=== PATIENT | male | born 1940 | race Caucasian/White ===

== ENCOUNTER 2017-10-24 11:09 | Inpatient (IN) | payer MEDICARE, BC ==
[2017-10-24] MEDS ORDERED: SODIUM CHLORIDE 0.9% 1,000 ML IV STA (11:27)
[2017-10-24 11:44] LABS: Basophils % (A) 1 %; Eosinophils # (A) 0.2 k/uL (0-0.7); Eosinophils % (A) 3 %; HCT 46.2 % (39.0-53.0); HGB 15.4 gm/dL (13.0-17.5); Lymphocytes # (A) 1.8 k/uL (1.0-4.8); Lymphocytes % (A) 27 %; MCH 27.4 pg (25.0-35.0); MCHC 33.4 g/dL (31.0-37.0); MCV 82.2 fL (80.0-100.0); Mean Platelet Volume 8.7; Monocytes # (A) 0.6 k/uL (0-1.0); Monocytes % (A) 9 %; Neutrophils # (A) 3.8 k/uL (1.3-7.7); Neutrophils % (A) 58 %; Platelet Count 151 k/uL (150-450); RBC 5.62 m/uL (4.30-5.90); RDW 13.3 % (11.5-15.5); WBC 6.4 k/uL (3.8-10.6)
--- NOTE | 2017-10-24 11:52 | ED ---
General Adult HPI - General Chief complaint: Chest Pain Stated complaint: Chest Pain Source: patient Mode of arrival: ambulatory Limitations: no limitations - History of Present Illness Initial comments: Dictation was produced using [email or web address] dictation software. please excuse any grammatical, word or spelling errors. Chief Complaint: 77-year-old male with past medical history diabetes, hypertension and chronic joint pain presents with chest pain and paresthesias to the face and left shoulder. History of Present Illness: Patient is a 77-year-old male with past medical history of diabetes and hypertension presents with chest pain with paresthesias to the face and left shoulder. Patient states at approximately 8 AM he began having chest pain. Soon after he began noticing paresthesias to the left lower face and left shoulder. Patient denies ever having had symptoms like this before. He localizes the chest pain to substernal with extension to the left chest. He does state that it rates to the back mildly. The ROS documented in this emergency department record has been reviewed and confirmed by me. Those systems with pertinent positive or negative responses have been documented in the HPI. All other systems are other negative and/or noncontributory. - Related Data Home Medications Medication Instructions Recorded Confirmed Alpha Lipoic Acid 600 mg PO DAILY 10/24/17 10/24/17 Bethanechol Chloride [Urecholine] 25 mg PO QID 10/24/17 10/24/17 Cholecalciferol [Vitamin D3] 2,000 unit PO DAILY 10/24/17 10/24/17 Diltiazem HCl [Diltiazem ER] 240 mg PO DAILY 10/24/17 10/24/17 Hydrochlorothiazide 12.5 mg PO DAILY 10/24/17 10/24/17 Metoprolol Tartrate [Lopressor] 25 mg PO BID-W/MEALS 10/24/17 10/24/17 [place]-3 Acid Ethyl Esters [Lovaza] 4 gm PO DAILY 10/24/17 10/24/17 Omeprazole [PriLOSEC] 40 mg PO BID 10/24/17 10/24/17 Telmisartan [Micardis] 40 mg PO DAILY 10/24/17 10/24/17 Testosterone Cypionate 140 mg IM WEEKLY 10/24/17 10/24/17 [Depo-Testosterone] rOPINIRole HCL [Requip] 4 mg PO BID@1700,2100 10/24/17 10/24/17 Allergies Allergy/AdvReac Type Severity Reaction Status Date / Time No Known Allergies Allergy Verified 10/24/17 11:24 Review of Systems ROS Statement: Those systems with pertinent positive or pertinent negative responses have been documented in the HPI. ROS Other: All systems not noted in ROS Statement are negative. Past Medical History Past Medical History: Diabetes Mellitus, Hypertension History of Any Multi-Drug Resistant Organisms: None Reported Past Surgical History: Back Surgery, Orthopedic Surgery Additional Past Surgical History / Comment(s): neck surg, shoulder, carpal tunnel, knee, colon polyp Past Psychological History: No Psychological Hx Reported Smoking Status: Never smoker Past Alcohol Use History: Occasional Past Drug Use History: None Reported General Exam - General Exam Comments Initial Comments: PHYSICAL EXAM: General Impression: Alert and oriented x3, acute distress secondary to pain HEENT: Normocephalic atraumatic, extra-ocular movements intact, pupils equal and reactive to light bilaterally, mucous membranes moist. Cardiovascular: Heart regular rate and rhythm, S1&S2 audible, no murmurs, rubs or gallops Chest: Lungs clear to auscultation bilaterally, no rhonchi, no wheeze, no rales Abdomen: Bowel sounds present, abdomen soft, non-tender, non-distended, no organomegaly Musculoskeletal: Pulses present and equal in all extremities, no peripheral edema Motor: Power 5/5 bilaterally, no focal deficits noted Neurological: CN II-XII grossly intact, sensory deficit to light touch of the left lower face and left shoulder extending from the left shoulder down to the elbow region Skin: Intact with no visualized rashes Psych: Normal affect and mood Limitations: no limitations Course Vital Signs 10/24/17 10/24/17 11:19 11:30 Temperature 98 F Pulse Rate 58 L Pulse Rate [ 53 L [employer] ] Respiratory 18 Rate Blood Pressure 177/89 O2 Sat by Pulse 97 Oximetry Medical Decision Making - Medical Decision Making ED course: 77-year-old male presents with chest pain with paresthesias to the left face and left shoulder. Vital signs upon arrival are within acceptable limits. There is concern that patient's symptoms represent dissection. Patient 's initial NIH was 3. Code stroke was withheld at this time because patient is not a cLaboratory evaluation obtained. CBC unremarkable. Coag panel is unremarkable. Chest x-ray shows no acute cardiopulmonary process. There was a delay in CT of the chest and head and neck. While this was being performed and read by radiologist patient fell out of the TPA window. Regardless patient was not a candidate for TPA given low NIH scale. Several hours later patient's CT results were resulted and found to be negative for any dissection or other arterial abnormalities. Patient reevaluated with stable medical condition. He does still have some chest pressure and persistent left jaw and left shoulder numbness. EKG did not show any signs to suggest ischemia, infarction or arrhythmias. At this point there is more suspicion that patient's symptoms are more insurance verification representative of CVA versus acute cardiac process. Patient given aspirin. He is admitted to [facility].andidate for TPA. There is strong clinical suspicion that patient's symptoms represent aortic dissection with extension to the left EKG Interpretation: A 12 lead EKG was obtained. It was interpreted by myself and attending physician. There is a P wave before every QRS complex. Rate is 57. Rhythm is sinus bradycardia, MI interval 166, QS 90, QTC 393. QT is not prolonged. No ST segment depression or elevation. This EKG was compared to a previous EKG that was obtained on 11/12/2007 and showed no significant change. Overall, this EKG is unremarkable - Lab Data Result diagrams: 10/24/17 11:20 10/24/17 11:20 Lab Results 10/24/17 10/24/17 10/24/17 Range/Units 11:20 11:20 11:20 WBC 6.4 (3.8-10.6) k/uL RBC 5.62 (4.30-5.90) m/uL Hgb 15.4 (13.0-17.5) gm/dL Hct 46.2 (39.0-53.0) % MCV 82.2 (80.0-100.0) fL MCH 27.4 (25.0-35.0) pg MCHC 33.4 (31.0-37.0) g/dL RDW 13.3 (11.5-15.5) % Plt Count 151 (150-450) k/uL Neutrophils % 58 % Lymphocytes % 27 % Monocytes % 9 % Eosinophils % 3 % Basophils % 1 % Neutrophils # 3.8 (1.3-7.7) k/uL Lymphocytes # 1.8 (1.0-4.8) k/uL Monocytes # 0.6 (0-1.0) k/uL Eosinophils # 0.2 (0-0.7) k/uL Basophils # 0.0 (0-0.2) k/uL PT (9.0-12.0) sec INR (<1.2) APTT (22.0-30.0) sec Sodium 138 (137-145) mmol/L Potassium 4.5 (3.5-5.1) mmol/L Chloride 104 (98-107) mmol/L Carbon Dioxide 21 L (22-30) mmol/L Anion Gap 13 mmol/L BUN 13 (9-20) mg/dL Creatinine 0.70 (0.66-1.25) mg/dL Est GFR (CKD-EPI)AfAm >90 (>60 ml/min/1.73 sqM) Est GFR (CKD-EPI)NonAf >90 (>60 ml/min/1.73 sqM) Glucose 112 H (74-99) mg/dL Calcium 9.7 (8.4-10.2) mg/dL Magnesium 1.5 L (1.6-2.3) mg/dL Total Bilirubin 0.6 (0.2-1.3) mg/dL AST 27 (17-59) U/L ALT 27 (21-72) U/L Alkaline Phosphatase 64 (38-126) U/L Total Creatine Kinase 177 H (55-170) U/L CK-MB (CK-2) 4.4 H* (0.0-2.4) ng/mL CK-MB (CK-2) Rel Index 2.5 Troponin I <0.012 (0.000-0.034) ng/mL Total Protein 7.0 (6.3-8.2) g/dL Albumin 4.4 (3.5-5.0) g/dL 10/24/17 Range/Units 11:20 WBC (3.8-10.6) k/uL RBC (4.30-5.90) m/uL Hgb (13.0-17.5) gm/dL Hct (39.0-53.0) % MCV (80.0-100.0) fL MCH (25.0-35.0) pg MCHC (31.0-37.0) g/dL RDW (11.5-15.5) % Plt Count (150-450) k/uL Neutrophils % % Lymphocytes % % Monocytes % % Eosinophils % % Basophils % % Neutrophils # (1.3-7.7) k/uL Lymphocytes # (1.0-4.8) k/uL Monocytes # (0-1.0) k/uL Eosinophils # (0-0.7) k/uL Basophils # (0-0.2) k/uL PT 10.0 (9.0-12.0) sec INR 1.0 (<1.2) APTT 21.3 L (22.0-30.0) sec Sodium (137-145) mmol/L Potassium (3.5-5.1) mmol/L Chloride (98-107) mmol/L Carbon Dioxide (22-30) mmol/L Anion Gap mmol/L BUN (9-20) mg/dL Creatinine (0.66-1.25) mg/dL Est GFR (CKD-EPI)AfAm (>60 ml/min/1.73 sqM) Est GFR (CKD-EPI)NonAf (>60 ml/min/1.73 sqM) Glucose (74-99) mg/dL Calcium (8.4-10.2) mg/dL Magnesium (1.6-2.3) mg/dL Total Bilirubin (0.2-1.3) mg/dL AST (17-59) U/L ALT (21-72) U/L Alkaline Phosphatase (38-126) U/L Total Creatine Kinase (55-170) U/L CK-MB (CK-2) (0.0-2.4) ng/mL CK-MB (CK-2) Rel Index Troponin I (0.000-0.034) ng/mL Total Protein (6.3-8.2) g/dL Albumin (3.5-5.0) g/dL Disposition Clinical Impression: Chest pain, Neurological deficit present Disposition: ADMITTED IP TO THIS [facility] Referrals: Nonstaff,Physician [Primary Care Provider] - 1-2 days Decision Time: 15:08
[2017-10-24 12:00] LABS: Partial Thromboplastin Time 21.3 sec (22.0-30.0)
[2017-10-24 12:04] LABS: Creatine Kinase 177 U/L (55-170)
[2017-10-24 12:06] LABS: ALT 27 U/L (21-72); AST 27 U/L (17-59); Albumin 4.4 g/dL (3.5-5.0); Alkaline Phosphatase 64 U/L (38-126); Anion Gap 13 mmol/L; Blood Urea Nitrogen 13 mg/dL (9-20); Calcium 9.7 mg/dL (8.4-10.2); Carbon Dioxide 21 mmol/L (22-30); Chloride 104 mmol/L (98-107); Glucose 112 mg/dL (74-99); Magnesium 1.5 mg/dL (1.6-2.3); Potassium 4.5 mmol/L (3.5-5.1); Sodium 138 mmol/L (137-145); Total Bilirubin 0.6 mg/dL (0.2-1.3)
[2017-10-24 12:16] LABS: Troponin I <0.012 ng/mL (0.000-0.034)
[2017-10-24 12:17] LABS: Creatine Kinase MB 4.4 ng/mL (0.0-2.4)
--- NOTE | 2017-10-24 14:11 | XR ---
EXAMINATION TYPE: XR chest 2V DATE OF EXAM: 10/24/2017 CLINICAL HISTORY: Chest Pain TECHNIQUE: Frontal and lateral views of the chest are obtained. COMPARISON: None FINDINGS: There is no focal air space opacity, pleural effusion, or pneumothorax seen. The cardiac silhouette size is within normal limits. The osseous structures are intact. IMPRESSION: No acute cardiopulmonary process.
--- NOTE | 2017-10-24 14:58 | CT ---
EXAMINATION TYPE: CT angio thor/abd pel aorta, CT angio head neck DATE OF EXAM: 10/24/2017 COMPARISON: None HISTORY: Shortness of breath, chest pain radiating to left side of face and shoulder. Dizziness. CT DLP: 1679 mGycm CONTRAST: CTA thoracic and abdominal aorta with 3-D reconstruction is performed and without and with IV Contras t (accession [id number]), with IV Contrast (accession [id number]), patient injected with 100 mL of Isovue 370. Contrast CTA of the thoracic and abdominal aorta was performed from the lung apex through the base of the pelvis. 3-D reconstruction imaging obtained at a separate workstation. CT Chest: THORACIC AORTA: There is no evidence for aneurysm. No dissection or mediastinal hematoma. Mild ath eromatous changes are seen. LUNGS: The lungs are clear and free of infiltrate or atelectasis. No pulmonary nodule or mass is det ected. No pleural effusion or CT evidence of interstitial lung disease. MEDIASTINUM: The heart is not enlarged. No evidence for mediastinal mass or adenopathy. HILAR STRUCTURES: No evidence for mass. No hilar adenopathy is appreciated. OTHER: No significant abnormality. CONTRAST CT ABDOMEN AND PELVIS ABDOMENAL AORTA: No evidence for abdominal aortic aneurysm. No dissection. Iliac vessels are symmet won and patent. LIVER/GB- No significant abnormality is seen. PANCREAS- No significant abnormality is seen. SPLEEN- No significant abnormality is seen. ADRENALS- No significant abnormality is seen. KIDNEYS/BLADDER-3 mm nonobstructing calculus lower pole right kidney. BOWEL- No Significant abnormality GENITAL ORGANS: No gross abnormality seen. LYMPH NODES- No greater than 1cm abdominal or pelvic lymph nodes are appreciated. OSSEOUS STRUCTURES-severe degenerative change lumbar spine and postoperative change. OTHER- No significant abnormality is seen. IMPRESSION- 1. No evidence for aortic dissection or aneurysm. EXAMINATION TYPE: CT angio thor/abd pel aorta, CT angio head neck DATE OF EXAM: 10/24/2017 COMPARISON: HISTORY: Shortness of breath, chest pain radiating to left side of face and shoulder. Dizziness. CT DLP: 1679 mGycm CONTRAST: Performed without and with IV Contrast (accession [id number]), with IV Contrast (accession [id number]), p atient injected with 100 mL of Isovue 370. Combination Contrast CTA cervical carotids and [place] CTA cervical carotids with 3-D recons truction Contrast CTA of the cervical carotids was performed 3-D reconstruction imaging obtained at a separate workstation. Right carotid system: Mild plaque is seen of the right common carotid artery. There is mild plaque a lso noted at the carotid bulb and proximal ICA. No significant diameter reduction. ECA is patent. Right vertebral artery appears unremarkable. Left carotid system: Mild plaque is seen of the left common carotid artery. There is mild plaque als o noted at the carotid bulb and proximal ICA. No significant diameter reduction. ECA is patent. Lef t vertebral artery appears unremarkable. IMPRESSION: 1. No significant diameter reduction to account for the patient's symptoms. No evidence for dissectio n. CTA [place] with 3-D reconstruction Contrast CTA of the [place] was performed 3-D reconstruction imaging obtained at a separate workstation. Vertebrobasilar system as well as intracranial portions of the internal carotid arteries and their [place] tributaries are patent. I do not see evidence for sizable aneurysm or vascular malformation. Pl ease note MRI provides greater sensitivity and specificity. Visualized brain appears grossly unremar kable. IMPRESSION: 1. No evidence for aneurysm or vascular occlusion.
[2017-10-24] MEDS ORDERED: ASPIRIN 81 MG PO STA (15:02)
[2017-10-24] MEDS ORDERED: NALOXONE 0.4 MG/ML 1 ML VIAL IV PRN (15:08)
[2017-10-24] MEDS: NITROGLYCERIN SL TABS 0.4 MG TAB SUBLINGUAL PRN ×3 (15:41→16:28)
[2017-10-24] MEDS ORDERED: ACETAMINOPHEN TAB 325 MG TAB PO PRN (15:42)
--- NOTE | 2017-10-24 15:57 | P.HPIM ---
History of Present Illness H&P Date: 10/24/17 Chief Complaint: Chest pain, facial numbness and tingling The patient is a 77-year-old male the past medical history of essential hypertension dyslipidemia, previous TIA, peripheral neuropathy who presents to the ER via private vehicle with chief complaints of chest pain. Apparently this morning the patient woke up feeling some mild to moderate left- sided chest pressure which she attributed to indigestion, the patient later preceded to do some yard work shoveling soil and after that began having worsening severe left-sided chest pressure with associated shortness of breath, lightheadedness, right-sided facial numbness and tingling, and radiation into his left shoulder and upper extremity. The patient denied any nausea diaphoresis or lower extremity swelling, the patient is a former cigarette smoker but does occasionally smoke a cigar several times a week. The patient reports previously having a treadmill stress test years ago that he was unable to complete secondary to severe joint pain. In the ER the patient received a comprehensive workup, EKG showed sinus bradycardia, initial set of troponins were negative, CK-MB elevated at 4.4. The patient was given aspirin in the ER and is still complain of chest pain. CTA of the of the chest and neck, were all negative. The patient is recommended for admission for chest pain and TIA workup. Her symptoms began approximately 9 AM, P per ER physician NIH score was approximately 3 and the patient had presented outside the window for TPA Review of Systems Pertinent positives and negatives as discussed in HPI, complete review of systems was performed and all other systems are negative Past Medical History Past Medical History: Diabetes Mellitus, Hypertension History of Any Multi-Drug Resistant Organisms: None Reported Past Surgical History: Back Surgery, Orthopedic Surgery Additional Past Surgical History / Comment(s): neck surg, shoulder, carpal tunnel, knee, colon polyp Past Psychological History: No Psychological Hx Reported Smoking Status: Never smoker Past Alcohol Use History: Occasional Past Drug Use History: None Reported Medications and Allergies Home Medications Medication Instructions Recorded Confirmed Type Alpha Lipoic Acid 600 mg PO DAILY 10/24/17 10/24/17 History Bethanechol Chloride [Urecholine] 25 mg PO QID 10/24/17 10/24/17 History Cholecalciferol [Vitamin D3] 2,000 unit PO DAILY 10/24/17 10/24/17 History Diltiazem HCl [Diltiazem ER] 240 mg PO DAILY 10/24/17 10/24/17 History Hydrochlorothiazide 12.5 mg PO DAILY 10/24/17 10/24/17 History Metoprolol Tartrate [Lopressor] 25 mg PO BID-W/MEALS 10/24/17 10/24/17 History [place]-3 Acid Ethyl Esters [Lovaza] 4 gm PO DAILY 10/24/17 10/24/17 History Omeprazole [PriLOSEC] 40 mg PO BID 10/24/17 10/24/17 History Telmisartan [Micardis] 40 mg PO DAILY 10/24/17 10/24/17 History Testosterone Cypionate 140 mg IM WEEKLY 10/24/17 10/24/17 History [Depo-Testosterone] rOPINIRole HCL [Requip] 4 mg PO BID@1700,2100 10/24/17 10/24/17 History Allergies Allergy/AdvReac Type Severity Reaction Status Date / Time No Known Allergies Allergy Verified 10/24/17 11:24 Physical Exam Vitals: Vital Signs Temp Pulse Pulse Resp BP Pulse Ox 10/24/17 15:42 140/81 10/24/17 15:28 64 16 144/85 96 10/24/17 11:30 53 L 10/24/17 11:19 98 F 58 L 18 177/89 97 Intake and Output 10/24/17 10/24/17 10/24/17 06:59 14:59 22:59 Other: Weight 85.729 kg Constitutional: No acute distress, conversant, pleasant Eyes: Anicteric sclerae, moist conjunctiva, no lid-lag, PERRLA ENMT: NC/AT,Oropharynx clear, no erythema, exudates Neck:Supple, FROM, no masses, or JVD, No carotid bruits; No thyromegaly Lungs: Clear to auscultation, Clear to percussion, Normal respiratory effort, no accessory muscle use Cardiovascular: Heart regular in rate and rhythm, No murmurs, gallops, or rubs no peripheral edema Abdominal: Soft Nontender, nom distended, no guarding, no rebound or rigidity, Normoactive bowel sounds No hepatomegaly, No splenomegaly, No palpable mass No abdominal wall hernia noted Skin: Normal temperature, tone, texture, turgor, No induration No subcutaneous nodules, No rash, lesions, No ulcers Extremities:No digital cyanosis No clubbing, Pedal pulses intact and symmetrical Radial pulses intact and symmetrical Normal gait and station, No calf tenderness Psychiatric: Alert and oriented to person, place and time, Appropriate affect Intact judgement Neuro: Muscles Strength 5/5 in all 4 extremities, Sensation to light touch grossly present throughout, Cranial nerves II-XII grossly intact. No focal sensory deficits Results CBC & Chem 7: 10/24/17 11:20 10/24/17 11:20 Labs: Abnormal Lab Results - Last 24 Hours (Table) 10/24/17 10/24/17 10/24/17 Range/Units 11:20 11:20 11:20 APTT 21.3 L (22.0-30.0) sec Carbon Dioxide 21 L (22-30) mmol/L Glucose 112 H (74-99) mg/dL Magnesium 1.5 L (1.6-2.3) mg/dL Total Creatine Kinase 177 H (55-170) U/L CK-MB (CK-2) 4.4 H* (0.0-2.4) ng/mL Assessment and Plan Assessment: Chronic medical issues Restless leg syndrome Peripheral neuropathy (1) Chest pain Current Visit: Yes Status: Acute Code(s): R07.9 - CHEST PAIN, UNSPECIFIED SNOMED Code(s): 37957413 (2) Facial paresthesia Current Visit: Yes Status: Acute Code(s): R20.9 - UNSPECIFIED DISTURBANCES OF SKIN SENSATION SNOMED Code(s): 27982777 (3) Hypertensive urgency Current Visit: Yes Status: Acute Code(s): I16.0 - HYPERTENSIVE URGENCY SNOMED Code(s): 009876382 Plan: The patient is placed in observation anticipated less than 2 midnight stay with chest pain concerning for unstable angina, his initial troponins are negative, EKG is negative for initiation of any acute ischemia. Patient does have ongoing coronary artery disease risk factors we'll plan to trend his cardiac markers, start routine chest pain orders with nitroglycerin sublingual, continue beta samaria metoprolol, initiate statin therapy. Resume all patient' s home and hypertensive regimen. We'll also start anticoagulation with heparin per protocol. We'll order echocardiogram, consult cardiology and neurology and continue to monitor patient's clinical course
[2017-10-24] MEDS: HEPARIN SOD,PORK IN 0.45% NACL 25,000 UNIT in 0.45% NACL 1 500ML.BAG IV SCH (16:20)
[2017-10-24] MEDS ORDERED: MORPHINE SULFATE 2 MG/ML SYRINGE IVP PRN (17:22)
[2017-10-24 17:46] LABS: Creatine Kinase 137 U/L (55-170)
[2017-10-24 17:58] LABS: Troponin I <0.012 ng/mL (0.000-0.034)
[2017-10-24 17:59] LABS: Creatine Kinase MB 3.7 ng/mL (0.0-2.4)
[2017-10-24] MEDS: BETHANECHOL 25 MG TAB PO SCH ×2 (18:46→20:29)
[2017-10-24] MEDS: METOPROLOL TARTRATE 25 MG TAB PO SCH (18:46)
[2017-10-24] MEDS: PANTOPRAZOLE 40 MG TABLET PO SCH (18:46)
[2017-10-24] MEDS: rOPINIRole HCL 4 MG TABLET PO SCH ×2 (18:46→20:29)
[2017-10-24] MEDS: HEPARIN SODIUM,PORCINE 5,000 UNIT/ML 1 ML VIAL IV PRN (21:15)
[2017-10-24 22:52] VITALS: BMI 28.7
[2017-10-24 23:17] LABS: Creatine Kinase 103 U/L (55-170)
[2017-10-24 23:30] LABS: Troponin I <0.012 ng/mL (0.000-0.034)
[2017-10-24 23:32] LABS: Creatine Kinase MB 3.1 ng/mL (0.0-2.4)
[2017-10-25] MEDS: METOPROLOL TARTRATE 25 MG TAB PO SCH ×2 (06:13→17:00)
[2017-10-25] MEDS: PANTOPRAZOLE 40 MG TABLET PO SCH ×2 (06:13→17:01)
[2017-10-25] MEDS ORDERED: MORPHINE ORAL SOLN 10 MG/5 ML CUP PO PRN (06:28)
[2017-10-25] MEDS: HEPARIN SODIUM,PORCINE 5,000 UNIT/ML 1 ML VIAL IV PRN (06:30)
[2017-10-25 06:37] LABS: Cholesterol 264 mg/dL (<200); HDL Cholesterol 43 mg/dL (40-60); LDL Cholesterol,Calculated 154 mg/dL (0-99); Triglycerides 334 mg/dL (<150)
[2017-10-25] MEDS: ATORVASTATIN 80 MG TAB PO SCH (08:07)
[2017-10-25] MEDS: ASPIRIN 325 MG TAB PO SCH (08:07)
[2017-10-25] MEDS: BETHANECHOL 25 MG TAB PO SCH ×4 (08:08→20:03)
[2017-10-25] MEDS: CHOLECALCIFEROL 1,000 UNIT TAB PO SCH (08:08)
[2017-10-25] MEDS: HYDROCHLOROTHIAZIDE 12.5 MG CAP PO SCH (08:09)
[2017-10-25] MEDS: DILTIAZEM CD 240 MG CAP.ER.24H PO SCH (08:09)
[2017-10-25] MEDS: LOSARTAN 50 MG TAB PO SCH (08:09)
--- NOTE | 2017-10-25 08:31 | ECHOF ---
Referral Reason:chest pain /TIA MEASUREMENTS -------- HEIGHT: 172.7 cm WEIGHT: 85.7 kg BP: 144/85 RVIDd: 3.4 cm (< 3.3) IVSd: 1.1 cm (0.6 - 1.1) LVIDd: 4.5 cm (3.9 - 5.3) LVPWd: 1.1 cm (0.6 - 1.1) IVSs: 1.4 cm LVIDs: 3.4 cm LVPWs: 1.4 cm LAESV Index (A-L): 26.51 ml/m Ao Diam: 3.6 cm (2.0 - 3.7) AV Cusp: 1.7 cm (1.5 - 2.6) LA Diam: 3.7 cm (2.7 - 3.8) EPSS: 1.1 cm MV E Marlon: 0.38 m/s MV DecT: 743 ms MV A Marlon: 0.95 m/s MV E/A Ratio: 0.40 RAP: 5.00 mmHg RVSP: 17.85 mmHg MV EF SLOPE: 61.91 mm/s (70 - 150) MV EXCURSION: 1.47 cm (> 18.000) FINDINGS -------- Sinus rhythm. This was a technically good study. The left ventricular size is normal. There is borderline concentric left ventricular hypertrophy. Overall left ventricular systolic function is normal with, an EF between 55 - 60 %. The right ventricle is mildly enlarged. Normal LA size by volume 22+/-6 ml/m2. The right atrium is normal in size. Hyperdynamic interatrial septum. Aortic valve is trileaflet and is mildly thickened. There is no evidence of aortic regurgitation. There is no evidence of aortic stenosis. The mitral valve is normal. Mild mitral regurgitation is present. Mild tricuspid regurgitation present. Right ventricular systolic pressure is normal at < 35 mmHg. The right ventricular systolic pressure, as measured by Doppler, is 17.85mmHg. Trace/mild (physiologic) pulmonic regurgitation. The aortic root is mildy dilated, up to 3.9 cm. Normal inferior vena cava with normal inspiratory collapse consistent with estimated right atrial pre ssure of 5 mmHg. There is no pericardial effusion. CONCLUSIONS -------- 1. Sinus rhythm. 2. This was a technically good study. 3. The left ventricular size is normal. 4. There is borderline concentric left ventricular hypertrophy. 5. Overall left ventricular systolic function is normal with, an EF between 55 - 60 %. 6. The right ventricle is mildly enlarged. 7. Normal LA size by volume 22+/-6 ml/m2. 8. Hyperdynamic interatrial septum. 9. Aortic valve is trileaflet and is mildly thickened. 10. Mild mitral regurgitation is present. 11. Right ventricular systolic pressure is normal at < 35 mmHg. 12. Trace/mild (physiologic) pulmonic regurgitation. 13. The aortic root is mildy dilated, up to 3.9 cm. 14. There is no pericardial effusion. INDEX EDITOR: Guillermo Baldwin RDCS
[2017-10-25] MEDS ORDERED: OMEGA ACID ETHYL ESTERS PO SCH (09:00)
[2017-10-25] MEDS ORDERED: ALPHA LIPOIC ACID 600 MG PO SCH (09:00)
--- NOTE | 2017-10-25 11:01 | P.PN ---
Subjective Progress Note Date: 10/25/17 Patient up and awake alert lady her Combivent relaxed, still complain of mild chest pressure rated at 2 out of 10 also with ongoing right facial paresthesias. No acute events overnight Objective - Vital Signs Vital signs: Vital Signs Temp 96.5 F L 10/25/17 08:00 Pulse 58 L 10/25/17 08:00 Resp 16 10/25/17 08:00 BP 138/73 10/25/17 08:00 Pulse Ox 99 10/25/17 08:00 Intake & Output 10/24/17 10/25/17 10/25/17 18:59 06:59 18:59 Intake Total 457.581 240 Output Total 700 Balance 457.581 -460 Weight 85.72 kg 83.1 kg Intake: IV 125 HEPARIN 25ML 125 Intake, IV Titration 332.581 Amount Heparin Sod,Pork in 0.45% 332.581 NaCl 25,000 unit In 0.45 % NaCl 1 500ml.bag @ 11. 67 UNITS/KG/HR 20 mls/hr IV .Q24H [facility] Rx#: [id number] Oral 240 Output: Urine 700 Other: Voiding Method Toilet Toilet - Exam Constitutional: No acute distress, conversant, pleasant Eyes: Anicteric sclerae, moist conjunctiva, no lid-lag, PERRLA ENMT: NC/AT,Oropharynx clear, no erythema, exudates Neck:Supple, FROM, no masses, or JVD, No carotid bruits; No thyromegaly Lungs: Clear to auscultation, Clear to percussion, Normal respiratory effort, no accessory muscle use Cardiovascular: Heart regular in rate and rhythm, No murmurs, gallops, or rubs no peripheral edema Abdominal: Soft Nontender, nom distended, no guarding, no rebound or rigidity, Normoactive bowel sounds No hepatomegaly, No splenomegaly, No palpable mass No abdominal wall hernia noted Skin: Normal temperature, tone, texture, turgor, No induration No subcutaneous nodules, No rash, lesions, No ulcers Extremities:No digital cyanosis No clubbing, Pedal pulses intact and symmetrical Radial pulses intact and symmetrical Normal gait and station, No calf tenderness Psychiatric: Alert and oriented to person, place and time, Appropriate affect Intact judgement Neuro: Muscles Strength 5/5 in all 4 extremities, Sensation to light touch grossly present throughout, Cranial nerves II-XII grossly intact. No focal sensory deficits - Labs CBC & Chem 7: 10/24/17 11:20 10/24/17 11:20 Labs: Abnormal Lab Results - Last 24 Hours (Table) 10/24/17 10/24/17 10/24/17 Range/Units 11:20 11:20 11:20 APTT 21.3 L (22.0-30.0) sec Carbon Dioxide 21 L (22-30) mmol/L Glucose 112 H (74-99) mg/dL Magnesium 1.5 L (1.6-2.3) mg/dL Total Creatine Kinase 177 H (55-170) U/L CK-MB (CK-2) 4.4 H* (0.0-2.4) ng/mL Triglycerides (<150) mg/dL Cholesterol (<200) mg/dL LDL Cholesterol, Calc (0-99) mg/dL 10/24/17 10/24/17 10/24/17 Range/Units 17:03 22:45 22:48 APTT 50.3 H (22.0-30.0) sec Carbon Dioxide (22-30) mmol/L Glucose (74-99) mg/dL Magnesium (1.6-2.3) mg/dL Total Creatine Kinase (55-170) U/L CK-MB (CK-2) 3.7 H* 3.1 H* (0.0-2.4) ng/mL Triglycerides (<150) mg/dL Cholesterol (<200) mg/dL LDL Cholesterol, Calc (0-99) mg/dL 10/25/17 10/25/17 Range/Units 06:00 06:00 APTT 37.5 H (22.0-30.0) sec Carbon Dioxide (22-30) mmol/L Glucose (74-99) mg/dL Magnesium (1.6-2.3) mg/dL Total Creatine Kinase (55-170) U/L CK-MB (CK-2) (0.0-2.4) ng/mL Triglycerides 334 H (<150) mg/dL Cholesterol 264 H (<200) mg/dL LDL Cholesterol, Calc 154 H (0-99) mg/dL Assessment and Plan (1) Chest pain Narrative/Plan: * Patient continues to have ongoing chest pressure, despite nitroglycerin and morphine * EKG was negative for any suggestive of acute ischemia, serial troponins are negative * Patient does have ongoing CAD risk factors and would benefit from a stress test * Cardiology consulted, echocardiogram results pending Current Visit: Yes Status: Acute Code(s): R07.9 - CHEST PAIN, UNSPECIFIED SNOMED Code(s): 86322675 (2) Facial paresthesia Narrative/Plan: * Concern for possible TIA * Imaging workup so far as been negative * Continue with antiplatelet therapy and statin regimen * Neurology consult pending Current Visit: Yes Status: Acute Code(s): R20.9 - UNSPECIFIED DISTURBANCES OF SKIN SENSATION SNOMED Code(s): 12792836 (3) Hypertensive urgency Narrative/Plan: * Not resolved since blood pressure is much improved * Continue current regimen Current Visit: Yes Status: Resolved Code(s): I16.0 - HYPERTENSIVE URGENCY SNOMED Code(s): 573093866 (4) Hyperlipidemia Narrative/Plan: * Continue statin therapy Current Visit: Yes Status: Acute Code(s): E78.5 - HYPERLIPIDEMIA, UNSPECIFIED SNOMED Code(s): 87312259 (5) TIA (transient ischemic attack) Narrative/Plan: * Treatment as above right facial paresthesias continue to persist Current Visit: Yes Status: Acute Code(s): G45.9 - TRANSIENT CEREBRAL ISCHEMIC ATTACK, UNSPECIFIED SNOMED Code(s): 408138610 Plan: * Disposition anticipate discharge in 1-2 days * Awaiting recommendations from consultants
--- NOTE | 2017-10-25 14:09 | CONS ---
CONSULTATION Mr. Malone is a 77-year-old gentleman who is seen for cardiac evaluation. This patient has a history of diabetes, hypertension, chronic joint pain. He presented to the emergency room yesterday with a complaint that he was having intermittent chest pain. The pain was sharp shooting pain would come and go last for minutes and then he felt some numbness and paresthesia in the left shoulder. The patient was seen in the emergency room. The CAT scan was negative. CT angiogram of the neck was done. There was no significant abnormality detected. Patient continues to have mild dull aching pain. The patient says he occasionally has these sharp shooting chest pains which are not related to exertion. He has a history of hypertension, diabetes, and he does not smoke. MEDICATIONS: The patient's home medications include lipoic acid, urecholine, Cardizem 240 mg daily, hydrochlorothiazide once a day, Lopressor 25 mg b.i.d., testosterone, Micardis 40 mg daily. PAST MEDICAL HISTORY: Past medical history includes orthopedic surgery, back surgery, hypertension and diabetes. SOCIAL HISTORY: Patient does not smoke. PHYSICAL EXAMINATION: Physical examination reveals a 77-year-old gentleman who does not appear to be in any acute distress. In the emergency room, patient's blood pressure was 177/99 mmHg. Patient's blood pressure now is 138/73 mmHg. HEAD/ENT examination is negative. Neck is supple. There is no increase in jugular venous pressure. Both the carotid pulses are felt. There is no bruit. Chest is symmetrical. HEART: The PMI is not felt. First and second heart sounds are normal. There is no evidence of any murmur. Lungs are clinically clear to auscultation and percussion. Abdomen is soft. Liver and spleen are not enlarged. Bowel sounds are heard. EXTREMITIES: Peripheral pulsations are 2+. EKG shows normal sinus rhythm without any acute ischemic changes. Patient's cardiac enzymes are normal. The patient has a significantly elevated cholesterol. FINAL IMPRESSION: This patient's symptoms are having intermittent chest pain which are suggestive of atypical angina. EKGs and cardiac enzymes are negative. Patient also has some numbness and paresthesia for which neurological evaluation has been in progress. Patient's echocardiogram is normal. We will start the patient on Lipitor and after the patient is stable neurologically further evaluation with a Lexiscan nuclear study is suggested. If the stress test shows any significant abnormality, then cardiac catheterization should be considered. MMODL / IJN: [id number] /
--- NOTE | 2017-10-25 15:22 | P.CONS ---
History of Present Illness - Reason for Consult Consult date: 10/25/17 Left-sided numbness - Chief Complaint Left-sided numbness - History of Present Illness This is a pleasant 77-year-old male being evaluated by the neurology service for the above complaints. He has a long history of angina type symptoms. He started to develop some left-sided chest pain while doing some physical work yesterday morning. The pain continued throughout the day. He decided to come to the [facility] emergency room for evaluation. While in the emergency room he started to develop left facial and left arm numbness. He is currently being evaluated by cardiology for his chest pain symptoms. CTA of the head and neck showed no acute intracranial abnormalities. There was no flow-limiting stenosis or intracranial vascular abnormalities. He did have significantly elevated lipid profile. He has been started on Lipitor. He was not on aspirin at home and he has been started on 325 mg since admission. At this time my exam he is resting comfortably in bed in no acute distress. Review of Systems All systems: negative Constitutional: Reports as per HPI Past Medical History Past Medical History: Diabetes Mellitus, Hypertension Additional Past Medical History / Comment(s): Patient states "previous TIA over 20 years ago". History of Any Multi-Drug Resistant Organisms: None Reported Past Surgical History: Back Surgery, Orthopedic Surgery Additional Past Surgical History / Comment(s): neck surg, shoulder, carpal tunnel, knee, colon polyp Past Anesthesia/Blood Transfusion Reactions: No Reported Reaction Past Psychological History: No Psychological Hx Reported Smoking Status: Never smoker Past Alcohol Use History: Occasional Past Drug Use History: None Reported - Past Family History Father Additional Family Medical History / Comment(s): "Cirrhosis of the liver, kidney failure, alcoholism" Medications and Allergies Home Medications Medication Instructions Recorded Confirmed Type Alpha Lipoic Acid 600 mg PO DAILY 10/24/17 10/24/17 History Bethanechol Chloride [Urecholine] 25 mg PO QID 10/24/17 10/24/17 History Cholecalciferol [Vitamin D3] 2,000 unit PO DAILY 10/24/17 10/24/17 History Diltiazem HCl [Diltiazem ER] 240 mg PO DAILY 10/24/17 10/24/17 History Hydrochlorothiazide 12.5 mg PO DAILY 10/24/17 10/24/17 History Metoprolol Tartrate [Lopressor] 25 mg PO BID-W/MEALS 10/24/17 10/24/17 History [place]-3 Acid Ethyl Esters [Lovaza] 4 gm PO DAILY 10/24/17 10/24/17 History Omeprazole [PriLOSEC] 40 mg PO BID 10/24/17 10/24/17 History Telmisartan [Micardis] 40 mg PO DAILY 10/24/17 10/24/17 History Testosterone Cypionate 140 mg IM WEEKLY 10/24/17 10/24/17 History [Depo-Testosterone] rOPINIRole HCL [Requip] 4 mg PO BID@1700,2100 10/24/17 10/24/17 History Allergies Allergy/AdvReac Type Severity Reaction Status Date / Time No Known Allergies Allergy Verified 10/24/17 11:24 Physical Exam Vitals: Vital Signs Temp Pulse Pulse Pulse Resp BP BP 10/25/17 12:00 54 L 16 123/76 10/25/17 10:58 16 10/25/17 08:00 96.5 F L 58 L 16 138/73 10/25/17 04:00 97.2 F L 56 L 18 126/75 10/25/17 03:48 18 10/25/17 00:00 97 F L 51 L 18 119/65 10/24/17 20:00 97.3 F L 52 L 18 137/72 10/24/17 17:28 98.1 F 58 L 16 127/83 10/24/17 16:37 97.3 F L 67 16 114/63 10/24/17 15:57 114/57 10/24/17 15:42 140/81 10/24/17 15:28 64 16 144/85 Pulse Ox 10/25/17 12:00 10/25/17 10:58 10/25/17 08:00 99 10/25/17 04:00 98 10/25/17 03:48 10/25/17 00:00 99 10/24/17 20:00 99 10/24/17 17:28 97 10/24/17 16:37 98 10/24/17 15:57 10/24/17 15:42 10/24/17 15:28 96 Intake and Output 10/25/17 10/25/17 10/25/17 06:59 14:59 22:59 Intake Total 362.248 480 Output Total 700 Balance 362.248 -220 Intake: IV 125 HEPARIN 25ML 125 Intake, IV Titration 237.248 Amount Heparin Sod,Pork in 0.45% 237.248 NaCl 25,000 unit In 0.45 % NaCl 1 500ml.bag @ 11. 67 UNITS/KG/HR 20 mls/hr IV .Q24H [facility] Rx#: [id number] Oral 480 Output: Urine 700 Other: Voiding Method Toilet Toilet Weight 83.1 kg - Constitutional General appearance: average body habitus, cooperative, no acute distress - EENT Eyes: no abnormal pupil, EOMI, PERRLA, no ptosis ENT: hearing grossly normal - Neck Neck: normal ROM, no rigidity - Respiratory Respiratory: negative: prolonged expiration, prolonged inspiration - Cardiovascular Rhythm: regular - Gastrointestinal General gastrointestinal: no distended, no tenderness - Neurologic The patient is alert awake and oriented 3. Speech and language are normal. There is no facial asymmetry. Strength is 5 out of 5 in bilateral upper and lower extremities. Mild sensory deficit to the left face and left shoulder.. No tremors or seizures are seen. Cranial nerves II through XII are intact globally. Results CBC & Chem 7: 10/24/17 11:20 10/24/17 11:20 Labs: Abnormal Lab Results - Last 24 Hours (Table) 10/24/17 10/24/17 10/24/17 Range/Units 17:03 22:45 22:48 APTT 50.3 H (22.0-30.0) sec CK-MB (CK-2) 3.7 H* 3.1 H* (0.0-2.4) ng/mL Triglycerides (<150) mg/dL Cholesterol (<200) mg/dL LDL Cholesterol, Calc (0-99) mg/dL 10/25/17 10/25/17 10/25/17 Range/Units 06:00 06:00 12:12 APTT 37.5 H 51.2 H (22.0-30.0) sec CK-MB (CK-2) (0.0-2.4) ng/mL Triglycerides 334 H (<150) mg/dL Cholesterol 264 H (<200) mg/dL LDL Cholesterol, Calc 154 H (0-99) mg/dL Assessment and Plan (1) Chest pain Current Visit: Yes Status: Chronic Code(s): R07.9 - CHEST PAIN, UNSPECIFIED SNOMED Code(s): 48083786 (2) Facial paresthesia Current Visit: Yes Status: Acute Code(s): R20.9 - UNSPECIFIED DISTURBANCES OF SKIN SENSATION SNOMED Code(s): 70849123 (3) Hyperlipidemia Current Visit: Yes Status: Chronic Code(s): E78.5 - HYPERLIPIDEMIA, UNSPECIFIED SNOMED Code(s): 73362383 (4) Hypertensive urgency Current Visit: Yes Status: Resolved Code(s): I16.0 - HYPERTENSIVE URGENCY SNOMED Code(s): 840773124 Plan: The patient is exhibiting symptoms concerning for an acute ischemic stroke of the right middle cerebral distribution. His initial studies have not shown any ischemic changes. Continue neurological checks. I will order MRI of the brain. For now continue aspirin and Lipitor as prescribed. Continue monitor and control blood pressure. We will continue to follow and make recommendations based on the above study. I have performed a history and physical on the above patient. I have reviewed the above note, and agree.
[2017-10-25] MEDS: rOPINIRole HCL 4 MG TABLET PO SCH ×2 (17:01→20:03)
[2017-10-25] MEDS: HEPARIN SOD,PORK IN 0.45% NACL 25,000 UNIT in 0.45% NACL 1 500ML.BAG IV SCH (19:41)
[2017-10-25] MEDS ORDERED: ONDANSETRON 4 MG/2 ML VIAL IVP PRN (21:52)
[2017-10-26] MEDS: METOPROLOL TARTRATE 25 MG TAB PO SCH ×2 (06:01→17:19)
[2017-10-26] MEDS: PANTOPRAZOLE 40 MG TABLET PO SCH ×2 (06:01→17:19)
[2017-10-26] MEDS: ATORVASTATIN 80 MG TAB PO SCH (07:41)
[2017-10-26] MEDS: DILTIAZEM CD 240 MG CAP.ER.24H PO SCH (07:41)
[2017-10-26] MEDS: ASPIRIN 325 MG TAB PO SCH (07:41)
[2017-10-26] MEDS: CHOLECALCIFEROL 1,000 UNIT TAB PO SCH (07:41)
[2017-10-26] MEDS: HYDROCHLOROTHIAZIDE 12.5 MG CAP PO SCH (07:41)
[2017-10-26] MEDS: LOSARTAN 50 MG TAB PO SCH (07:42)
--- NOTE | 2017-10-26 10:02 | P.PN ---
Subjective Progress Note Date: 10/26/17 Patient doing well today has no concerns Objective - Vital Signs Vital signs: Vital Signs Temp 97.6 F 10/26/17 00:00 Pulse 63 10/26/17 07:56 Resp 16 10/26/17 07:56 BP 150/90 10/26/17 07:56 Pulse Ox 97 10/26/17 07:56 Intake & Output 10/25/17 10/26/17 10/26/17 18:59 06:59 18:59 Intake Total 720 480 360 Output Total 1500 600 Balance -780 480 -240 Weight 83 kg Intake: Oral 720 480 360 Output: Urine 1500 600 Other: Voiding Method Toilet Toilet # Voids 2 - Exam Constitutional: No acute distress, conversant, pleasant Eyes: Anicteric sclerae, moist conjunctiva, no lid-lag, PERRLA ENMT: NC/AT,Oropharynx clear, no erythema, exudates Neck:Supple, FROM, no masses, or JVD, No carotid bruits; No thyromegaly Lungs: Clear to auscultation, Clear to percussion, Normal respiratory effort, no accessory muscle use Cardiovascular: Heart regular in rate and rhythm, No murmurs, gallops, or rubs no peripheral edema Abdominal: Soft Nontender, nom distended, no guarding, no rebound or rigidity, Normoactive bowel sounds No hepatomegaly, No splenomegaly, No palpable mass No abdominal wall hernia noted Skin: Normal temperature, tone, texture, turgor, No induration No subcutaneous nodules, No rash, lesions, No ulcers Extremities:No digital cyanosis No clubbing, Pedal pulses intact and symmetrical Radial pulses intact and symmetrical Normal gait and station, No calf tenderness Psychiatric: Alert and oriented to person, place and time, Appropriate affect Intact judgement Neuro: Muscles Strength 5/5 in all 4 extremities, Sensation to light touch grossly present throughout, Cranial nerves II-XII grossly intact. No focal sensory deficits - Labs CBC & Chem 7: 10/24/17 11:20 10/24/17 11:20 Labs: Abnormal Lab Results - Last 24 Hours (Table) 10/25/17 10/26/17 Range/Units 12:12 06:10 APTT 51.2 H 52.0 H (22.0-30.0) sec Assessment and Plan (1) Chest pain Narrative/Plan: * Patient continues to have ongoing chest pressure, despite nitroglycerin and morphine * EKG was negative for any suggestive of acute ischemia, serial troponins are negative * Patient does have ongoing CAD risk factors and would benefit from a stress test * Cardiology consulted, echocardiogram showing ejection fraction of 55-60% Current Visit: Yes Status: Chronic Code(s): R07.9 - CHEST PAIN, UNSPECIFIED SNOMED Code(s): 44986192 (2) Facial paresthesia Narrative/Plan: * Concern for possible TIA * Imaging workup so far as been negative * Continue with antiplatelet therapy and statin regimen * Appreciate neurology recommendations, patient scheduled to have MRI done Current Visit: Yes Status: Acute Code(s): R20.9 - UNSPECIFIED DISTURBANCES OF SKIN SENSATION SNOMED Code(s): 09995680 (3) Hypertensive urgency Narrative/Plan: * Now resolved since blood pressure is much improved * Continue current regimen Current Visit: Yes Status: Resolved Code(s): I16.0 - HYPERTENSIVE URGENCY SNOMED Code(s): 942251443 (4) Hyperlipidemia Narrative/Plan: * Continue statin therapy Current Visit: Yes Status: Chronic Code(s): E78.5 - HYPERLIPIDEMIA, UNSPECIFIED SNOMED Code(s): 13280972 (5) TIA (transient ischemic attack) Narrative/Plan: * Treatment as above right facial paresthesias continue to persist Current Visit: Yes Status: Acute Code(s): G45.9 - TRANSIENT CEREBRAL ISCHEMIC ATTACK, UNSPECIFIED SNOMED Code(s): 902431615 Plan: * Disposition anticipate discharge in 1-2 days * Appreciate recommendations from consultants we'll follow-up MRI and Lexiscan stress test
[2017-10-26] MEDS: BETHANECHOL 25 MG TAB PO SCH ×4 (11:43→19:44)
--- NOTE | 2017-10-26 12:35 | P.PN ---
Subjective Progress Note Date: 10/26/17 Principal diagnosis: Left-sided numbness Is a pleasant 77-year-old male continuing to be evaluated by the neurology service. He has a long history of angina symptoms and cardiology is working him up for this. He came in for some left-sided chest pain that turned into left facial and left arm numbness. This is largely unchanged. Recall his CT of the head and neck showed no acute intracranial abnormalities and no significant stenosis or vascular abnormalities. At time my exam today he says he feels that the right side of his face is now a little bit numb. He has no other focal neurological deficits. He is resting comfortably in bed in no acute distress. Objective - Vital Signs Vital signs: Vital Signs Temp 97.6 F 10/26/17 00:00 Pulse 58 L 10/26/17 11:50 Resp 16 10/26/17 11:50 BP 129/74 10/26/17 11:50 Pulse Ox 97 10/26/17 11:50 Intake & Output 10/25/17 10/26/17 10/26/17 18:59 06:59 18:59 Intake Total 720 480 360 Output Total 1500 600 Balance -780 480 -240 Weight 83 kg Intake: Oral 720 480 360 Output: Urine 1500 600 Other: Voiding Method Toilet Toilet Toilet # Voids 2 - Constitutional General appearance: Present: average body habitus, cooperative, no acute distress - EENT Eyes: Present: EOMI, PERRLA. Absent: abnormal pupil, ptosis ENT: Present: hearing grossly normal - Neck Neck: Present: normal ROM. Absent: rigidity - Respiratory Respiratory: negative: prolonged expiration, prolonged inspiration - Cardiovascular Rhythm: regular - Gastrointestinal General gastrointestinal: Absent: distended, tenderness - Neurologic Neurologic Comment(s): She is alert awake and oriented 3. Speech-language are normal. There is no facial asymmetry. Strength is 5 out of 5 in bilateral upper lower extremities. He has a mild sensory deficit to the left face and left shoulder. No sensory deficit from the right gnosticism. No tremors or seizure-like activities are seen. Pronator drift. - Labs CBC & Chem 7: 10/24/17 11:20 10/24/17 11:20 Labs: Abnormal Lab Results - Last 24 Hours (Table) 10/25/17 10/26/17 Range/Units 12:12 06:10 APTT 51.2 H 52.0 H (22.0-30.0) sec Assessment and Plan (1) Chest pain Current Visit: Yes Status: Chronic Code(s): R07.9 - CHEST PAIN, UNSPECIFIED SNOMED Code(s): 98158062 (2) Facial paresthesia Current Visit: Yes Status: Acute Code(s): R20.9 - UNSPECIFIED DISTURBANCES OF SKIN SENSATION SNOMED Code(s): 99594563 (3) Hyperlipidemia Current Visit: Yes Status: Chronic Code(s): E78.5 - HYPERLIPIDEMIA, UNSPECIFIED SNOMED Code(s): 61040120 (4) Hypertensive urgency Current Visit: Yes Status: Resolved Code(s): I16.0 - HYPERTENSIVE URGENCY SNOMED Code(s): 873840887 Plan: The patient is exhibiting symptoms concerning for an acute ischemic stroke. He is having some new right sided facial symptoms which or sensory in nature. His initial studies have not shown any ischemic changes. Continue neurological checks. I will order a CT of the brain. For now continue aspirin and Lipitor as prescribed. Physical therapyThe patient is alert awake and oriented 3. Speech and language are normal. There is no facial asymmetry. Strength is 5 out of 5 in bilateral upper and lower extremities. There is no sensory deficit in any extremity. Cranial nerves II through XII are intact globally. There is no pronator drift. There is no dysmetria or dysdiadochokinesia. No tremors or seizure-like activities are seen. occupational therapy and speech therapy recommended. Continue monitor and control blood pressure. We will continue to follow and make recommendations based on the above study. I have performed a history and physical on the above patient. I have reviewed the above note, and agree.
--- NOTE | 2017-10-26 13:47 | CT ---
EXAMINATION TYPE: CT brain wo con DATE OF EXAM: 10/26/2017 COMPARISON: None HISTORY: 77-year-old male left-sided numbness, new right shoulder numbness today, Facial and head num bness TECHNIQUE: Examination was done in axial plane without intravenous contrast. Coronal and sagittal r econstructions performed. CT DLP: 1162.8 mGycm Automated exposure control for dose reduction was used. FINDINGS: There is no evidence of acute intracranial hemorrhage, acute ischemic changes, mass, mass-effect, or extra-axial fluid collection. There is no effacement of cerebral sulci or basal subarachnoid cister ns. There is no hydrocephalus. There is no midline shift. Ta-white matter distinction is preserv ed. Moderate patchy and confluent white matter hypodensities in both cerebral hemispheres. Old lacunar in farct versus prominent perivascular space bilateral basal ganglia. The globes appear myopic. There is previous scleral banding on the left. Mastoid air cells well pneum atized and paranasal sinuses are clear. IMPRESSION: 1. Moderate patchy and confluent changes of chronic small vessel ischemic disease with either old lac unar infarct or prominent perivascular spaces in the basal ganglia. 2. No acute intracranial abnormality seen.
[2017-10-26] MEDS: rOPINIRole HCL 4 MG TABLET PO SCH ×2 (17:19→19:44)
[2017-10-26] MEDS: ACETAMINOPHEN TAB 325 MG TAB PO PRN (19:43)
[2017-10-27] MEDS: PANTOPRAZOLE 40 MG TABLET PO SCH ×2 (06:34→17:00)
[2017-10-27] MEDS: METOPROLOL TARTRATE 25 MG TAB PO SCH ×2 (06:34→17:00)
--- NOTE | 2017-10-27 08:14 | PN ---
PROGRESS NOTE Mr. Malone is admitted with a chest discomfort and numbness on the face. Neurological workup is in progress. Patient is feeling better. He complains of numbness all over the face. Patient had a repeat CT scan done today which did not show any significant new abnormality. There is a suggestion of a small vessel disease. Patient's pain is improved. Blood pressure is 104/70 mmHg. Patient is afebrile. First and second heart sounds are normal. Lungs are clinically clear to auscultation and percussion. Respirations are not labored. IMPRESSION: Clinically this patient's chest pains are suggestive of atypical angina. Neurological workup is in progress. The patient will be scheduled for Lexiscan Cardiolite study to rule out any evidence of any significant cardiac ischemia. We will continue the current medications. MMODL / IJN: [id number] /
[2017-10-27] MEDS: DILTIAZEM CD 240 MG CAP.ER.24H PO SCH (09:10)
[2017-10-27] MEDS: LOSARTAN 50 MG TAB PO SCH (09:10)
[2017-10-27] MEDS: BETHANECHOL 25 MG TAB PO SCH ×4 (09:10→20:38)
[2017-10-27] MEDS: ATORVASTATIN 80 MG TAB PO SCH (09:10)
[2017-10-27] MEDS: HYDROCHLOROTHIAZIDE 12.5 MG CAP PO SCH (09:10)
[2017-10-27] MEDS: ASPIRIN 325 MG TAB PO SCH (09:10)
[2017-10-27] MEDS: CHOLECALCIFEROL 1,000 UNIT TAB PO SCH (09:10)
--- NOTE | 2017-10-27 11:51 | P.PN ---
Subjective Progress Note Date: 10/27/17 Principal diagnosis: Madhu Is a pleasant 77-year-old male continuing to be evaluated by the neurology service. He has a long history of angina symptoms and cardiology is working him up for this. He came in for some left-sided chest pain that turned into left facial and left arm numbness. This is largely unchanged. Recall his CT of the head and neck showed no acute intracranial abnormalities and no significant stenosis or vascular abnormalities. Repeat CT of the brain showed no acute intracranial abnormalities either. At time my exam today he says he still feels that the right side of his face is now a little bit numb. He has no other focal neurological deficits. He is resting comfortably in bed in no acute distress. Objective - Vital Signs Vital signs: Vital Signs Temp 97.5 F L 10/27/17 08:00 Pulse 52 L 10/27/17 08:00 Resp 18 10/27/17 08:00 BP 155/78 10/27/17 08:00 Pulse Ox 97 10/27/17 08:00 Intake & Output 10/26/17 10/27/17 10/27/17 18:59 06:59 18:59 Intake Total 822 480 480 Output Total 1400 0 900 Balance -578 480 -420 Weight 83 kg Intake: Oral 822 480 480 Output: Urine 1400 0 900 Other: Voiding Method Toilet Toilet Toilet # Voids 0 - Constitutional General appearance: Present: average body habitus, cooperative, no acute distress - EENT Eyes: Present: EOMI, PERRLA. Absent: abnormal pupil, ptosis ENT: Present: hearing grossly normal - Neck Neck: Present: normal ROM. Absent: rigidity - Respiratory Respiratory: negative: prolonged expiration, prolonged inspiration - Cardiovascular Rhythm: regular - Gastrointestinal General gastrointestinal: Absent: distended, tenderness - Neurologic Neurologic Comment(s): The patient is alert awake and oriented 3. Speech and language are normal. There is no facial asymmetry. Strength is 5 out of 5 in bilateral upper and lower extremities. There is no sensory deficit except for mild sensory deficit left face and left shoulder.. No tremors or seizures are seen. Cranial nerves II through XII are intact globally. - Labs CBC & Chem 7: 10/24/17 11:20 10/24/17 11:20 Assessment and Plan (1) Chest pain Current Visit: Yes Status: Chronic Code(s): R07.9 - CHEST PAIN, UNSPECIFIED SNOMED Code(s): 20557447 (2) Facial paresthesia Current Visit: Yes Status: Acute Code(s): R20.9 - UNSPECIFIED DISTURBANCES OF SKIN SENSATION SNOMED Code(s): 83285925 (3) Hyperlipidemia Current Visit: Yes Status: Chronic Code(s): E78.5 - HYPERLIPIDEMIA, UNSPECIFIED SNOMED Code(s): 57582746 (4) Hypertensive urgency Current Visit: Yes Status: Resolved Code(s): I16.0 - HYPERTENSIVE URGENCY SNOMED Code(s): 037629004 (5) History of cervical spinal surgery Current Visit: Yes Status: Chronic Code(s): Z98.890 - OTHER SPECIFIED POSTPROCEDURAL STATES SNOMED Code(s): 387363982 (6) Paresthesias Current Visit: Yes Status: Acute Code(s): R20.2 - PARESTHESIA OF SKIN SNOMED Code(s): 92601193 Plan: The patient is exhibiting symptoms concerning for an acute ischemic stroke. He is having some new right sided facial symptoms which or sensory in nature. His studies have not shown any ischemic changes. Continue neurological checks. I will add an MRI of the cervical spine with contrast to his existing order of MRI brain. For now continue aspirin and Lipitor as prescribed. Physical therapy. occupational therapy and speech therapy recommended. Continue monitor and control blood pressure. We will continue to follow and make recommendations based on the above study. I have performed a history and physical on the above patient. I have reviewed the above note, and agree.
--- NOTE | 2017-10-27 11:56 | P.PN ---
Subjective Progress Note Date: 10/27/17 Patient doing well today has no concerns. Still having intermittent facial paresthesias and chest pain Objective - Vital Signs Vital signs: Vital Signs Temp 97.5 F L 10/27/17 08:00 Pulse 52 L 10/27/17 08:00 Resp 18 10/27/17 08:00 BP 155/78 10/27/17 08:00 Pulse Ox 97 10/27/17 08:00 Intake & Output 10/26/17 10/27/17 10/27/17 18:59 06:59 18:59 Intake Total 822 480 480 Output Total 1400 0 900 Balance -578 480 -420 Weight 83 kg Intake: Oral 822 480 480 Output: Urine 1400 0 900 Other: Voiding Method Toilet Toilet Toilet # Voids 0 - Exam Constitutional: No acute distress, conversant, pleasant Eyes: Anicteric sclerae, moist conjunctiva, no lid-lag, PERRLA ENMT: NC/AT,Oropharynx clear, no erythema, exudates Neck:Supple, FROM, no masses, or JVD, No carotid bruits; No thyromegaly Lungs: Clear to auscultation, Clear to percussion, Normal respiratory effort, no accessory muscle use Cardiovascular: Heart regular in rate and rhythm, No murmurs, gallops, or rubs no peripheral edema Abdominal: Soft Nontender, nom distended, no guarding, no rebound or rigidity, Normoactive bowel sounds No hepatomegaly, No splenomegaly, No palpable mass No abdominal wall hernia noted Skin: Normal temperature, tone, texture, turgor, No induration No subcutaneous nodules, No rash, lesions, No ulcers Extremities:No digital cyanosis No clubbing, Pedal pulses intact and symmetrical Radial pulses intact and symmetrical Normal gait and station, No calf tenderness Psychiatric: Alert and oriented to person, place and time, Appropriate affect Intact judgement Neuro: Muscles Strength 5/5 in all 4 extremities, Sensation to light touch grossly present throughout, Cranial nerves II-XII grossly intact. No focal sensory deficits - Labs CBC & Chem 7: 10/24/17 11:20 10/24/17 11:20 Assessment and Plan (1) Chest pain Narrative/Plan: * Patient continues to have ongoing chest pressure, despite nitroglycerin and morphine * EKG was negative for any suggestive of acute ischemia, serial troponins are negative * Patient does have ongoing CAD risk factors and would benefit from a stress test * Cardiology consulted, echocardiogram showing ejection fraction of 55-60% Current Visit: Yes Status: Chronic Code(s): R07.9 - CHEST PAIN, UNSPECIFIED SNOMED Code(s): 56614218 (2) Facial paresthesia Narrative/Plan: * Concern for possible TIA * Imaging workup so far as been negative * Continue with antiplatelet therapy and statin regimen * Appreciate neurology recommendations, patient scheduled to have MRI of the brain and cervical spine done tomorrow Current Visit: Yes Status: Acute Code(s): R20.9 - UNSPECIFIED DISTURBANCES OF SKIN SENSATION SNOMED Code(s): 98425519 (3) Hypertensive urgency Narrative/Plan: * Now resolved since blood pressure is much improved * Continue current regimen Current Visit: Yes Status: Resolved Code(s): I16.0 - HYPERTENSIVE URGENCY SNOMED Code(s): 506700415 (4) Hyperlipidemia Narrative/Plan: * Continue statin therapy Current Visit: Yes Status: Chronic Code(s): E78.5 - HYPERLIPIDEMIA, UNSPECIFIED SNOMED Code(s): 84681998 (5) TIA (transient ischemic attack) Narrative/Plan: * Treatment as above right facial paresthesias continue to persist Current Visit: Yes Status: Acute Code(s): G45.9 - TRANSIENT CEREBRAL ISCHEMIC ATTACK, UNSPECIFIED SNOMED Code(s): 087895007 Plan: * Disposition anticipate discharge tomorrow if studies are negative * Appreciate recommendations from consultants we'll follow-up MRI and Lexiscan stress test
[2017-10-27 16:58] VITALS: RESP 18
[2017-10-27] MEDS: rOPINIRole HCL 4 MG TABLET PO SCH ×2 (17:00→20:38)
[2017-10-27] MEDS: ACETAMINOPHEN TAB 325 MG TAB PO PRN (20:37)
[2017-10-28] MEDS: METOPROLOL TARTRATE 25 MG TAB PO SCH ×2 (06:37→17:38)
[2017-10-28] MEDS: PANTOPRAZOLE 40 MG TABLET PO SCH ×2 (06:37→17:38)
[2017-10-28] MEDS ORDERED: REGADENOSON 0.4 MG/5 ML SYRINGE IV ONE (08:00)
[2017-10-28] MEDS ORDERED: AMINOPHYLLINE 500 MG/20 ML VIAL IV PRN (08:00)
--- NOTE | 2017-10-28 09:12 | PN ---
PROGRESS NOTE This patient is admitted with chest discomfort and numbness around the face and head. He is doing well. The patient is not having anymore heaviness in the chest. Continues to have some numbness around the face. The patient was supposed to have a MRI done today. Blood pressure is 146/81 mmHg. Oxygen saturation is 98%. First and second heart sounds are normal. Lungs are clinically clear to auscultation and percussion. The patient will be evaluated with Lexiscan Cardiolite study tomorrow. MMODL / IJN: [id number] /
[2017-10-28] MEDS: LOSARTAN 50 MG TAB PO SCH (11:03)
[2017-10-28] MEDS: HYDROCHLOROTHIAZIDE 12.5 MG CAP PO SCH (11:03)
--- NOTE | 2017-10-28 11:03 | EST ---
EXERCISE STRESS DATE OF SERVICE: 10/28/2017 AGE: 77 SEX: Male HT: 5'8" WT: 180 pounds PROTOCOL: Lexiscan Cardiolite STAGE: DURATION OF EXERCISE: HEART RATE REST: 52 BLOOD PRESSURE REST: 141/85 MAXIMUM HEART RATE ACHIEVED: 62 MAXIMUM BLOOD PRESSURE: 144/70 85% MPHR: 100% MPHR: METS: INDICATIONS: Chest pain. CLINICAL INFORMATION: A Lexiscan nuclear study was performed. Peak heart rate of 62 was achieved. Maximum blood pressure 144/70 mmHg was noted. Resting EKG shows normal sinus rhythm with normal clear interval and QRS duration and normal ST-T waves. No ST-segment depression suggestive of ischemia is noted. The results of the nuclear study will follow. MMODL / IJN: [id number] /
[2017-10-28] MEDS: ATORVASTATIN 80 MG TAB PO SCH (11:04)
[2017-10-28] MEDS: BETHANECHOL 25 MG TAB PO SCH ×4 (11:04→20:31)
[2017-10-28] MEDS: ASPIRIN 325 MG TAB PO SCH (11:04)
[2017-10-28] MEDS: DILTIAZEM CD 240 MG CAP.ER.24H PO SCH (11:04)
[2017-10-28] MEDS: CHOLECALCIFEROL 1,000 UNIT TAB PO SCH (11:04)
--- NOTE | 2017-10-28 11:45 | NM ---
EXAMINATION TYPE: NM stress lexiscan cardiolite DATE OF EXAM: 10/28/2017 COMPARISON: NONE HISTORY: Chest pain TECHNIQUE: After the intravenous administration of 9.94 mCi Tc 99m Sestamibi - Cardiolite resting SP ECT images acquired 45 minutes post injection. The patient received 0.4mg Lexiscan, 27.2 mCi Tc 99m Sestamibi - Stress images obtained [address] injection FINDINGS: Review of stress and rest SPECT images demonstrates decreased radiopharmaceutical uptake on stress an d rest images along the inferior wall left ventricle. Some decreased uptake is noted along the infer ior septal left ventricle on stress as compared to rest images towards the base of the heart. Gated a nalysis shows normal wall motion with an estimated left ventricular ejection fraction of 49 %. 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
--- NOTE | 2017-10-28 13:21 | P.PN ---
Subjective Mr. Malone is seen and examined sitting up in bed in no acute distress. He states he again felt chest pain this morning while laying in bed lasting approximately 10 minutes. No specific aggravating or alleviating factors. No radiation to the back, neck, arm or jaw. He denies associated shortness of breath, dizziness , palpitations, nausea, vomiting or diaphoresis. Continues to complain of ongoing numbness in the face. Lexiscan stress test has been performed this morning, results pending. MRI scheduled for this afternoon. Blood pressure 134 /77 heart rate 53 afebrile maintaining oxygen saturation on room air. Objective - Vital Signs Vital signs: Vital Signs Temp 97.8 F 10/28/17 07:52 Pulse 53 L 10/28/17 08:00 Resp 18 10/28/17 08:00 BP 134/77 10/28/17 07:52 Pulse Ox 94 L 10/28/17 07:52 Intake & Output 10/27/17 10/28/17 10/28/17 18:59 06:59 18:59 Intake Total 960 10 240 Output Total 1700 600 Balance -740 10 -360 Weight 81.9 kg 81.647 kg Intake: IV 10 0.9 10 Oral 960 240 Output: Urine 1700 600 Other: Voiding Method Toilet Toilet Toilet # Voids 2 - Exam GENERAL: Well-appearing, well-nourished and in no acute distress. NECK: Supple without JVD or thyromegaly. LUNGS: Breath sounds clear to auscultation bilaterally. Respiration equal and unlabored. No wheezes, rales or rhonchi. HEART: Regular rate and rhythm without murmurs, rubs or gallops. S1 and S2 heard. EXTREMITIES: Normal range of motion, no edema. No clubbing or cyanosis. Peripheral pulses intact. - Labs CBC & Chem 7: 10/24/17 11:20 10/24/17 11:20 Assessment and Plan Assessment: ASSESSMENT Chest pain, atypical. An acute coronary event has been ruled out. Dyslipidemia Hypertension Diabetes mellitus PLAN Proceed with Lexiscan stress test as previously ordered, results are pending. Further recommendations to follow based upon clinical course. Nurse Practitioner note has been reviewed, I agree with a documented findings and plan of care. Patient was seen and examined.
--- NOTE | 2017-10-28 15:04 | MR ---
EXAMINATION TYPE: MR brain wo cspine wo/w DATE OF EXAM: 10/28/2017 COMPARISON: CT brain 10/26/2017 HISTORY: left facial/arm numbness TECHNIQUE: Multiplanar, multisequence images of the brain and brainstem is performed without contrast. FINDINGS: Diffusion weighted images demonstrate no evidence of a recent infarct or other diffusion ab normality. There are changes of chronic sinusitis. Nasal septal deviation noted. Moderate generalized degenerative change. There are both confluent as well as numerous focal areas of abnormal signal throughout the white matter. Findings are nonspecific but most typical remote ischem ia. Midline structures demonstrate normal morphology. The craniocervical junction appears within normal limits. Post contrast images demonstrate no abnormal enhancement. The dural venous sinuses appear pa tent. The visualized sinuses are clear and the globes are intact. IMPRESSION: 1. Degenerative and nonspecific white matter changes most typical remote ischemia. MRI CERVICAL SPINE: CLINICAL HISTORY: Pain TECHNIQUE: Multiplanar, multisequence imaging of the cervical spine is performed without and with IV contrast, 7.5 abnormal Gadavist was given intravenously. COMPARISON: None FINDINGS: Sagittal images of the cervical spine show the craniocervical junction to appear within nor mal limits. The cervical and upper thoracic spinal cord is normal in course, caliber, and signal. V ertebral alignment is anatomic. Postsurgical changes are seen throughout the cervical spine. Minimal anterolisthesis of C7 on T1. Mul tilevel facet arthropathy and ligamentum flavum hypertrophy. At C2-C3 there is facet arthropathy and uncovertebral joint hypertrophy with mild bilateral foraminal encroachment. C3-C4. Postsurgical changes. There is facet arthropathy and uncovertebral joint hypertrophy greater o n the left with severe left-sided foraminal encroachment. Suspect nerve root impingement. Moderate to severe right-sided foraminal encroachment. At C4-C5 there is facet arthropathy and uncovertebral joint hypertrophy. Posterior cervical spondylos is and moderate bilateral foraminal encroachment. Borderline central stenosis. At C5-C6. There is bilateral uncovertebral joint hypertrophy and facet arthropathy. There is moderate to severe bilateral foraminal encroachment. No Canal stenosis. At C6-C7 there is uncovertebral joint hypertrophy and facet arthropathy. Mild to moderate bilateral f oraminal encroachment. C7-T1 there is no disc herniation. No Canal stenosis. There is mild sagittal disc bulging and mild bi lateral foraminal encroachment. There may be a slight anterolisthesis. There is a subcentimeter right thyroid nodule. Following contrast enhancement no no definite patholog ic enhancement. No abnormal signal seen in the visualized spinal cord. IMPRESSION: 1. Postsurgical changes with borderline central stenosis C4-C5. Multilevel cervical spondylosis, face t arthropathy and uncovertebral joint hypertrophy contributes to multilevel significant foraminal enc roachment as discussed above. 2. Subcentimeter right thyroid nodule
--- NOTE | 2017-10-28 17:31 | P.PN ---
Subjective Progress Note Date: 10/28/17 Patient seen and examined at the bedside. The patient notes that he continues to have left facial paresthesias but otherwise denying any weakness or numbness elsewhere, dizziness, blurred vision, double vision, or gait abnormalities. He further denied any chest pain shortness of breath nausea or vomiting. Objective - Vital Signs Vital signs: Vital Signs Temp 98 F 10/28/17 12:00 Pulse 55 L 10/28/17 12:00 Resp 18 10/28/17 12:00 BP 128/74 10/28/17 12:00 Pulse Ox 95 10/28/17 12:00 Intake & Output 10/27/17 10/28/17 10/28/17 18:59 06:59 18:59 Intake Total 960 10 240 Output Total 1700 600 Balance -740 10 -360 Weight 81.9 kg 81.647 kg Intake: IV 10 0.9 10 Oral 960 240 Output: Urine 1700 600 Other: Voiding Method Toilet Toilet Toilet # Voids 2 - Exam General: Awake, alert, in NAD, appears of stated age Derm: warm, dry Head: atraumatic, normocephalic, symmetric Eyes: EOMI, no lid lag, anicteric sclera Mouth: mucus membranes moist Cardiovascular: S1S2 reg, no murmur, rubs, or gallops Lungs: CTA bilateral, no rhonchi, no rales, no accessory muscle use Abdominal: soft, nontender to palpation, no guarding or rigidity, no appreciable organomegaly Ext: no edema, no contractures Neuro: Strength 5/5 throughout, mild L ptosis, mildly decreased L facial sensation, otherwise CN II-XII grossly intact, no focal neuro deficits Psych: AAOx3, appropriate affect - Labs CBC & Chem 7: 10/24/17 11:20 10/24/17 11:20 Assessment and Plan Assessment: Chest pain, now resolved - Lexicon stress test positive - Will keep patient NPO overnight for possible cardiac procedure in a.m. - Continue with aspirin 325 mg daily, Lipitor 80 mg daily, and metoprolol 25 mg by mouth twice daily - Echocardiogram reviewed - Troponins neg x 3 - Telemetry monitoring Facial paresthesias - TIA vs CVA - MRI consistent w/ remote ischemia - C/w Aspirin 325 mg po qd and Lipitor 80 mg qd - PT/OT consult - Speech therapy consult Hyperlipidemia - C/w Lipitor 80 mg qd Hypertension - Controlled w/ Cardizem 240 mg qd, HCTZ 12.5 mg qd, Losartan 100 mg qd, and Lopressor 25 mg po bid DVT prophyl. - IPCDs Time with Patient: Greater than 30
[2017-10-28] MEDS: rOPINIRole HCL 4 MG TABLET PO SCH ×2 (17:38→20:31)
[2017-10-28] MEDS ORDERED: DOCUSATE 100 MG CAP PO PRN (17:39)
[2017-10-29] MEDS: METOPROLOL TARTRATE 25 MG TAB PO SCH ×2 (06:27→16:03)
[2017-10-29] MEDS: PANTOPRAZOLE 40 MG TABLET PO SCH ×2 (06:27→16:03)
[2017-10-29] MEDS ORDERED: SODIUM CHLORIDE 0.9% 1,000 ML in EMPTY BAG 1 BAG IV ONE (09:03)
[2017-10-29] MEDS ORDERED: ALPRAZolam 0.25 MG TAB PO PRN (09:03)
[2017-10-29] MEDS ORDERED: ALPRAZolam 0.5 MG TAB PO PRN (09:03)
[2017-10-29] MEDS: ASPIRIN 325 MG TAB PO SCH (10:12)
[2017-10-29] MEDS: DILTIAZEM CD 240 MG CAP.ER.24H PO SCH (10:13)
[2017-10-29] MEDS: LOSARTAN 50 MG TAB PO SCH (10:13)
[2017-10-29] MEDS: HYDROCHLOROTHIAZIDE 12.5 MG CAP PO SCH (10:13)
[2017-10-29] MEDS: ATORVASTATIN 80 MG TAB PO SCH (10:13)
[2017-10-29] MEDS: CHOLECALCIFEROL 1,000 UNIT TAB PO SCH (10:13)
[2017-10-29] MEDS: BETHANECHOL 25 MG TAB PO SCH ×2 (10:13→13:11)
[2017-10-29 14:23] VITALS: PULSE 53; TEMP 97.5
[2017-10-29] MEDS: rOPINIRole HCL 4 MG TABLET PO SCH (16:03)
--- NOTE | 2017-10-29 17:08 | P.DS ---
Providers Date of admission: 10/24/17 15:08 Expected date of discharge: 10/29/17 Attending physician: Kale West MD Consults: 10/24/17 15:22 Consult Physician Routine Consulting Provider: Gilles Araiza Consult Reason/Comments: chest pain Do you want consulting provider notified?: Yes 10/24/17 17:23 Consult Physician Stat Consulting Provider: Pedro Cleaning Consult Reason/Comments: syncope Do you want consulting provider notified?: Yes Primary care physician: Physician Nonstaff Hospital Course: The patient is a 77-year-old male with a past medical history of hypertension, hyperlipidemia, cervical and lumbar radiculopathy, who presented to the ED with a chief complaint of chest pain and shortness of breath. The patient also noted that had been having intermittent left facial numbness and tingling with radiation to the left shoulder and upper extremity ongoing for several years. In the ER the patient's EKG showed sinus bradycardia with initial set of troponins negative and CK-MB elevated at 4.4. The patient was admitted for chest pain and suspected TIA workup. The patient underwent head and neck CTA which was unremarkable. The patient also underwent an echocardiogram which showed normal EF and no significant valvular abnormalities. He was evaluated by cardiology and neurology and recommendations were appreciated. The patient underwent a lexicon stress test which showed findings compatible with previous infarct and probable pharmacological induced myocardial ischemia. Cardiology recommended that the findings are likely artifact and recommended medical management w/ outpatient follow-up. The patient also underwent MRI of brain which showed changes consistent with remote ischemia. MRI of cervical spine showed post surgical changes along with multilevel foraminal encroachment. Discussed with neurology and orthopedic-spine, who agreed that the patient's findings of left facial paresthesias are not compatible with findings on cervical spine and that the patient is stable for discharge with outpatient follow-up, w/ recommended steroid taper. Physical Exam General: Awake, alert, in no acute distress HEENT: NC/AT, anicteric sclerae, moist conjunctiva, no lid-lag, PERRLA, oropharynx clear, no erythema, exudates Neck:Supple, FROM, no masses, or JVD, No carotid bruits; No thyromegaly Lungs: Clear to auscultation, normal respiratory effort, no accessory muscle use Cardiovascular: S1/S2 wnl, no murmurs, rubs, or gallops Abdominal: Soft, nontender, non-distended, no guarding, rebound, or rigidity, normoactive bowel sounds Skin: Warm, dry Extremities: No edema or contractures Psychiatric: Alert and oriented to person, place and time, Appropriate affect Intact judgement Neuro: Muscles Strength 5/5 in all 4 extremities, Cranial nerves II-XII grossly intact. Mild L facial, L shoulder, and UE diffuse numbness. Patient Condition at Discharge: Good Plan - Discharge Summary Discharge Rx Participant: Yes New Discharge Prescriptions: New Aspirin 81 mg PO DAILY #30 chew Atorvastatin [Lipitor] 80 mg PO DAILY #30 tab Losartan [Cozaar] 100 mg PO DAILY #30 tab predniSONE See Taper PO DIRECTED #30 tab Continue rOPINIRole HCL [Requip] 4 mg PO BID@1700,2100 [place]-3 Acid Ethyl Esters [Lovaza] 4 gm PO DAILY Hydrochlorothiazide 12.5 mg PO DAILY #30 capsule Metoprolol Tartrate [Lopressor] 25 mg PO BID-W/MEALS #60 tab Discontinued Telmisartan [Micardis] 40 mg PO DAILY No Action Omeprazole [PriLOSEC] 40 mg PO BID Diltiazem HCl [Diltiazem ER] 240 mg PO DAILY Cholecalciferol [Vitamin D3] 2,000 unit PO DAILY Bethanechol Chloride [Urecholine] 25 mg PO QID Alpha Lipoic Acid 600 mg PO DAILY Testosterone Cypionate [Depo-Testosterone] 140 mg IM WEEKLY Discharge Medication List Alpha Lipoic Acid 600 mg PO DAILY 10/24/17 [History] Bethanechol Chloride [Urecholine] 25 mg PO QID 10/24/17 [History] Cholecalciferol [Vitamin D3] 2,000 unit PO DAILY 10/24/17 [History] Diltiazem HCl [Diltiazem ER] 240 mg PO DAILY 10/24/17 [History] [place]-3 Acid Ethyl Esters [Lovaza] 4 gm PO DAILY 10/24/17 [History] Omeprazole [PriLOSEC] 40 mg PO BID 10/24/17 [History] Testosterone Cypionate [Depo-Testosterone] 140 mg IM WEEKLY 10/24/17 [History] rOPINIRole HCL [Requip] 4 mg PO BID@1700,2100 10/24/17 [History] Aspirin 81 mg PO DAILY #30 chew 09/05/18 [Rx] Atorvastatin [Lipitor] 80 mg PO DAILY #30 tab 10/29/17 [Rx] Hydrochlorothiazide 12.5 mg PO DAILY #30 capsule 10/29/17 [Rx] Losartan [Cozaar] 100 mg PO DAILY #30 tab 10/29/17 [Rx] Metoprolol Tartrate [Lopressor] 25 mg PO BID-W/MEALS #60 tab 10/29/17 [Rx] predniSONE See Taper PO DIRECTED #30 tab 10/29/17 [Rx] Follow up Appointment(s)/Referral(s): [facility] [Provider Group] - 1 Week (Follow up with Dr. Lewis) Nonstaff,Physician [Primary Care Provider] - 1-2 days (Dr. Davidson) Mainor Escobar, KAMLA [PHYSICIAN CUSTOMER ACCOUNT TECHNICIAN] - 1 Week Jyoti Newton DO [Doctor of Osteopathic Medicine] - 1 Week Patient Instructions/Handouts: Transient Ischemic Attack (DC), Hypertension (DC ), Hyperlipidemia (DC) Activity/Diet/Wound Care/Special Instructions: Incidentally, you were found to have a sub-centimeter thyroid nodule. If this was not previously worked up, please follow-up with your primary care provider to have it evaluated further. Discharge Disposition: HOME SELF-CARE
--- NOTE | 2017-10-29 17:56 | PN ---
PROGRESS NOTE Mr. Malone is a patient who was seen by Dr. Mary Lewis. He had a stress test yesterday which revealed a predominantly fixed defect with some reversibility. I reviewed the scan myself and talked to the patient. Symptoms are very atypical. It is a predominantly fixed defect; could also be a diaphragmatic attenuation. Echo revealed preserved systolic function. Clinical picture does not suggest ischemia. We will therefore discharge him on current medical regimen and have him see Dr. Natasha Lewis in one week. Vital signs stable. No JVD or carotid bruit. S1 and S2 heard normally. Short systolic murmur. Lungs reveal diminished air entry. Abdomen and lower extremity exam otherwise is unchanged. MMODL / IJN: [id number] /
[2017-10-29 18:10] VITALS: BP 130/70
[2017-10-30] MEDS ORDERED: ASPIRIN 81 MG PO SCH (09:00)
== END 2017-10-29 18:12 | disposition home or self-care (01) | DRG 69 ==
LOC: EC 11:09 → 6SEL 15:08
PROVIDERS: ADMIT Family Medicine; ATTEND Family Medicine
DX: G45.9 Transient cerebral ischemic attack, unspecified (principal); E11.42 Type 2 diabetes mellitus with diabetic polyneuropathy; I10 Essential (primary) hypertension; I16.0 Hypertensive urgency; E78.5 Hyperlipidemia, unspecified; R07.89 Other chest pain; M54.16 Radiculopathy, lumbar region; M54.12 Radiculopathy, cervical region; G25.81 Restless legs syndrome; M25.50 Pain in unspecified joint; G89.29 Other chronic pain; F17.290 Nicotine dependence, other tobacco product, uncomplicated; Z71.6 Tobacco abuse counseling; Z79.899 Other long term (current) drug therapy; Z86.73 Personal history of transient ischemic attack (TIA), and cerebral infarction without residual deficits; Z86.010 Personal history of colon polyps; Z83.79 Family history of other diseases of the digestive system; Z84.1 Family history of disorders of kidney and ureter; Z81.1 Family history of alcohol abuse and dependence
CPT/HCPCS: 36415; 70450; 70496; 70498; 70551; 71046; 71275; 72156; 74174; 78452; 80053; 80061; 82550; 82553; 83735; 84484; 85025; 85610; 85730; 93005; 93017; 93306; 96365; 99285